=== PATIENT | male | born 1965 | race Caucasian/White ===

== ENCOUNTER 2020-06-21 09:12 | Emergency (ER) | payer OTHER ==
[~2020-06-21] VITALS: Ht 172.7 cm; Wt 83.9 kg
== END 2020-06-21 14:45 | disposition home or self-care (01) ==
LOC: ER 09:12
DX: R56.9 Unspecified convulsions (principal); Z79.899 Other long term (current) drug therapy
CPT/HCPCS: 70450; 70496; 70498; 70551; 80053; 82947; 84484; 85025; 93005; 93010; 96374; 99285-25; G0480; J2060; J3475; Q9967

== ENCOUNTER 2020-07-25 09:24 | Observation (INO) | payer OTHER ==
[~2020-07-25] VITALS: Ht 172.7 cm; Wt 84.2 kg
[~2020-07-25 09:24] MED LIST: DISU250 PO; Naltrexone HCl50 MG PO; SERT100 PO
[2020-07-25 10:44] LABS: BASOPHILS ABSOLUTE AUTO 0.03 K/mm3 (0.00-0.23); BASOPHILS PERCENT AUTO 1 % (0-2); EOSINOPHILS ABSOLUTE AUTO 0.14 K/mm3 (0.00-0.68); EOSINOPHILS PERCENT AUTO 2 % (0-6); Hematocrit 46.6 % (37.0-53.0); Hemoglobin 16.4 g/dL (13.5-17.5); IMMATURE GRAN ABSOLUTE AUTO 0.02 K/mm3 (0.00-0.10); IMMATURE GRAN PERCENT AUTO 0 % (0-1); LYMPHOCYTES ABSOLUTE AUTO 1.94 K/mm3 (0.84-5.20); LYMPHOCYTES PERCENT AUTO 32 % (21-46); MONOCYTES ABSOLUTE AUTO 0.44 K/mm3 (0.16-1.47); MONOCYTES PERCENT AUTO 7 % (4-13); Mean Corpuscular HGB 30.8 pg (26.0-34.0); Mean Corpuscular HGB Conc 35.2 g/dL (31.5-36.5); Mean Corpuscular Volume 87 fL (80-100); Mean Platelet Volume 9.5 fL (9.1-12.4); NEUTROPHILS PERCENT AUTO 58 % (41-73); Platelet Count 153 K/mm3 (150-400); RDW Standard Deviation 38.4 fL (35.1-46.3); Red Blood Cell Count 5.33 M/mm3 (4.30-5.90); White Blood Cell Count 6.07 K/mm3 (4.00-11.30)
[2020-07-25 10:54] LABS: Alanine Aminotransfer (ALT/SGP 63 U/L (12-78); Albumin, Blood 4.3 g/dL (3.4-5.0); Albumin/Globulin Ratio 1.3 (0.8-1.8); Alk Phos 92 U/L (50-136); Anion Gap 10 mmol/L (6-16); Aspartate Aminotrans (AST/SGOT 21 U/L (12-37); Bilirubin, Total 0.6 mg/dL (0.1-1.0); Blood Urea Nitrogen 16 mg/dL (8-24); Bun/Creatinine Ratio 13.1 (12.0-20.0); CO2, Blood 22 mmol/L (21-32); Calcium, Blood 9.8 mg/dL (8.5-10.1); Chloride, Blood 108 mmol/L (98-108); Creatinine, Blood 1.22 mg/dL (0.60-1.20); Globulin, Blood 3.2 g/dL (2.2-4.0); Glomerular Filtration Rate >60 (60-); Glucose, Blood 88 mg/dL (70-99); Sodium, Blood 140 mmol/L (136-145); Total Protein, Blood 7.5 g/dL (6.4-8.2); Troponin I <0.015 ng/mL (0.000-0.040)
[2020-07-25] MEDS ORDERED: IVERMECTIN3 MG PO (11:41)
[2020-07-25] MEDS ORDERED: HYDSUL200 PO (13:41)
[2020-07-25] MEDS ORDERED: DISU250 PO (13:41)
[2020-07-25] MEDS ORDERED: Stromectol3 MG PO (13:42)
[2020-07-25] MEDS ORDERED: ALPR1 PO (13:42)
[2020-07-25] MEDS ORDERED: Naltrexone HCl50 MG PO (13:43)
--- NOTE | 2020-07-25 17:38 | NUR ---
Shift Summary, Patient is a new admit this shift from ER C/O SOB and chest pain. The patient is A/OX4 to person, place, time, and event. The patient is cooperartive with his care. He is a 1 person assist r/t SOV, but denies any ambulatory deficits. He has not been in any respiratory distress or c/o chest pain this shift. The patient is currently resting on his bed.
--- NOTE | 2020-07-25 17:54 | NUR ---
STUDENT ASSESSMENT REVIEW I HAVE REVIEWED THE STUDENT'S ASSESSMENT, CONDUCTED MY OWN ASSESSMENT, AND I AGREE WITH THE STUDENT'S FINDINGS.
[2020-07-26 05:51] LABS: Anion Gap 7 mmol/L (6-16); Blood Urea Nitrogen 18 mg/dL (8-24); Bun/Creatinine Ratio 15.1 (12.0-20.0); CO2, Blood 22 mmol/L (21-32); Calcium, Blood 8.5 mg/dL (8.5-10.1); Chloride, Blood 112 mmol/L (98-108); Creatinine, Blood 1.19 mg/dL (0.60-1.20); Glomerular Filtration Rate >60 (60-); Glucose, Blood 85 mg/dL (70-99); Potassium, Blood 4.1 mmol/L (3.5-5.5); Sodium, Blood 141 mmol/L (136-145)
--- NOTE | 2020-07-26 07:38 | NUR ---
[employer] SUMMARY Patient is alert and oriented X4, independent in room, and continues to have chest discomfort and increasing SOB with very minimal exertion. Vital signs remain stable, TELE overnight was a consistant Sinius Rhythm in the 60's without ectopy. troponins also continue to trend negative. Abdi has been NPO since 0300 for Lexiscan sometime this morning.
--- NOTE | 2020-07-26 19:42 | NUR ---
call light in reach, denies cp and states that what he is feeling is not anxiety, rm air saline locked, ate dinner shared need for limits on diet for test at 1000 on 07/27 with noc nurse and pt during bsr
--- NOTE | 2020-07-27 05:31 | NUR ---
SUMMARY PT HAD NO ISSUES NOTED. PT HAS BEEN NPO ORDERED. PT DENIES CX PAIN OR SOB. CALL LIGHT IN REACH.
--- NOTE | 2020-07-27 11:35 | NUR ---
here for completion of stress test, woke up feeling very lethargic has remained thus, have given coffee, breakfast (late) and snacks, consulted cn and hospitalist, just went down for final of stress test
--- NOTE | 2020-07-27 19:42 | NUR ---
stayed here for stress test reading, left with , dc'd tele and iv, reviewed medications and appointments
== END 2020-07-27 17:22 | disposition home or self-care (01) ==
LOC: ER 09:24 → MEDS 09:25
PROVIDERS: Emergency Medicine; Nurse Practitioner Acute Care; ADMIT Hospitalist
DX: I20.8 Other forms of angina pectoris (principal); U07.1 COVID-19; E78.5 Hyperlipidemia, unspecified; F41.9 Anxiety disorder, unspecified; Z86.19 Personal history of other infectious and parasitic diseases
CPT/HCPCS: 36415; 71045; 78452; 80048; 80053; 83880; 84484; 85025; 85379; 93005; 93010; 93017; 99285-25; A9270; A9500; G0378; J2785